=== PATIENT | male | born 1975 | race Caucasian/White ===

== ENCOUNTER → 2022-12-22 | Outpatient (CLI) | payer BC ==
[2022-12-22 23:29] LABS: Basophils # (A) 0.04 X 10*3/uL (0.00-0.10); Basophils % (A) 0.5 %; Eosinophils # (A) 0.18 X 10*3/uL (0.04-0.35); Eosinophils % (A) 2.3 %; HCT 46.3 % (39.6-50.0); Immature Grans, Automated 0.5 %; Lymphocytes # (A) 1.68 X 10*3/uL (0.90-5.00); Lymphocytes % (A) 21.9 %; MCH 30.4 pg (27.0-32.0); MCHC 32.4 g/dL (32.0-37.0); MCV 93.9 fL (80.0-97.0); Monocytes # (A) 0.63 X 10*3/uL (0.20-1.00); Monocytes % (A) 8.2 %; NRBC Per 100 WBC 0 /100 WBCS (0.0-0.0); Neutrophils % (A) 66.6 %; Platelet Count 330 X 10*3/uL (140-440); RBC 4.93 X 10*6/uL (4.40-5.60); RDW 12.8 % (11.5-14.5); WBC 7.67 X 10*3/uL (4.50-10.00)
[2022-12-22 23:53] LABS: African American GFR (CKD) 105.6 (60.0-200.0); Anion Gap 10.8 mmol/L (10.00-18.00); Calcium 10.3 mg/dL (8.7-10.3); Carbon Dioxide 27.2 mmol/L (20.0-27.5); Non-African American GFR(CKD) 91.1 (60.0-200.0); Potassium 4.6 mmol/L (3.5-5.5)
[2022-12-22 23:58] LABS: Appearance,Urine Clear (Clear); Bilirubin,Urine Negative (Negative); Blood,Urine Moderate (Negative); Color,Urine Yellow (Yellow); Ketones,Urine Negative (Negative); Nitrite,Urine Negative (Negative); Specific Gravity,Urine 1.025 (1.001-1.030); Urobilinogen,Urine 0.2 (0.2,1.0)
[2022-12-23 00:12] LABS: Bacteria,Urine None Seen /HPF (None Seen); Calcium Oxalate Crystals,Urine Present /LPF (None Seen)
== END | disposition home or self-care (01) ==
LOC: LABPAT 15:11
PROVIDERS: ATTEND Urology
DX: Z01.812 Encounter for preprocedural laboratory examination (principal); N20.1 Calculus of ureter; R31.29 Other microscopic hematuria
CPT/HCPCS: 80048; 81001; 85025; 87086

== ENCOUNTER 2022-12-27 05:46 | Day surgery (SDC) | payer BC ==
[2022-12-21 15:02] VITALS: BMI 29.4
--- NOTE | 2022-12-26 19:20 | P.GSHP ---
History of Present Illness H&P Date: 12/26/22 Chief Complaint: Left renal calculus The patient is a 46-year-old white male with a history of left-sided urolithiasis, for which he has undergone extracorporal shockwave lithotripsy (ESWL) twice in the past. He recently passed a 9 mm left distal ureteral calculus. Follow-up imaging reveals a [address] left [address]J calculus. Dr. Mills reviewed alternative treatment options with the patient, and he has elected to undergo ESWL. He comes for this reason. Past Medical History Past Medical History: Hypertension Additional Past Medical History / Comment(s): kidney stones History of Any Multi-Drug Resistant Organisms: None Reported Past Surgical History: No Surgical Hx Reported Additional Past Surgical History / Comment(s): Left ESWL x 2 Past Anesthesia/Blood Transfusion Reactions: No Reported Reaction Smoking Status: Current some day smoker - Past Family History Mother Family Medical History: No Reported History Medications and Allergies Allergies Allergy/AdvReac Type Severity Reaction Status Date / Time No Known Allergies Allergy Verified 12/21/22 14:52 Surgical - Exam - General well developed, well nourished, no distress - Neck no masses, trachea midline - Abdomen Abdomen: soft, non tender, no guarding, no rigid, no rebound - Psychiatric oriented to time, oriented to person, oriented to place, speech is normal, memory intact Results - Imaging Abdominal x-ray: report reviewed Assessment and Plan (1) Ureterolithiasis Status: Acute Priority: High Code(s): N20.1 - CALCULUS OF URETER SNOMED Code(s): 90326951 Plan: Left ESWL. The patient is aware of potential risks, which include anesthesia, renal contusion, perinephric hematoma, treatment failure, incomplete fragmentation, and Steinstrasse. He is also aware of the possible need for secondary treatment.
--- NOTE | 2022-12-27 06:17 | XR ---
EXAMINATION TYPE: XR KUB DATE OF EXAM: 12/27/2022 6:13 AM CLINICAL HISTORY: Kidney stone TECHNIQUE: Two supine KUB images of the abdomen are obtained. COMPARISON: Abdominal x-ray September 08, 2015 FINDINGS: There is stellate 1.6 cm calculus at L2 level left mid abdomen. Occasional Scattered tiny p elvic left-sided pelvic phleboliths. Overall nonobstructive bowel gas pattern. Visualized osseous structures are intact IMPRESSION: As above.
[2022-12-27] MEDS ORDERED: LIDOCAINE 1% (10MG/ML) FOR IV START INTRADERMA PRN (06:31)
[2022-12-27] MEDS: LACTATED RINGERS 1,000 ML IV SCH ×2 (06:35→07:37)
[2022-12-27 06:43] VITALS: RESP 16; TEMP 97.5
[2022-12-27] MEDS ORDERED: fentaNYL (PF) 50 MCG/ML 2 ML AMP IV PRN (07:00)
[2022-12-27] MEDS ORDERED: ONDANSETRON 4 MG/2 ML VIAL IVP PRN (07:00)
[2022-12-27] MEDS ORDERED: PROPOFOL 10 MG/ML 20 ML VIAL IV ONE (07:38)
[2022-12-27] MEDS ORDERED: KETAMINE 10 MG/ML 20 ML VIAL ONE (07:38)
[2022-12-27] MEDS ORDERED: fentaNYL (PF) 50 MCG/ML 2 ML AMP ONE (07:38)
[2022-12-27] MEDS ORDERED: MIDAZOLAM 2 MG/2 ML VIAL ONE (07:38)
[2022-12-27 08:40] VITALS: BP 135/75; PULSE 70
--- NOTE | 2022-12-27 08:54 | P.OP ---
Date of Procedure: 12/27/22 Preoperative Diagnosis: Left UPJ calculus Postoperative Diagnosis: Same Procedure(s) Performed: Left extracorporal shockwave lithotripsy (ESWL) Anesthesia: MAC Surgeon: Addison Estrada Estimated Blood Loss (ml): 0 IV fluids (ml): 400 Pathology: none sent Condition: stable Disposition: PACU Indications for Procedure: The patient is a 46-year-old white male with a history of left-sided urolithiasis, for which he has undergone extracorporal shockwave lithotripsy (ESWL) twice in the past. He recently passed a 9 mm left distal ureteral calculus. Follow-up imaging reveals a [address]J calculus. Dr[address] Mills reviewed alternative treatment options with the patient, and he has elected to undergo ESWL. He comes for this reason. Operative Findings: Fragmentation of the calculus occurs. Description of Procedure: The patient was taken to the operating room and placed on the Dornier Compact Delta II lithotripter in the supine position. The calculus was seen on biplanar fluoroscopy. Once the patient was properly positioned and sedated, lithotripsy was performed. The energy level was gradually increased per protocol, to an energy level of 5. After 200 shocks were administered, a 2 minute pause was instituted per protocol. A total of 2500 shocks were given at a rate of 80 shocks per minute. Fluoroscopy was utilized at a minimum to ensure proper positioning and determine the treatment status. The calculus changed in appearance, consistent with fragmentation. The patient tolerated the procedure well was taken to the recovery room in stable condition. Instructions were given to strain the urine, and the patient will follow-up within one week.
== END 2022-12-27 09:43 | disposition home or self-care (01) ==
LOC: ORWHC2ENDO 05:46
PROVIDERS: ATTEND Urology
DX: N20.1 Calculus of ureter (principal); Z87.442 Personal history of urinary calculi; I10 Essential (primary) hypertension; F17.200 Nicotine dependence, unspecified, uncomplicated; Z79.899 Other long term (current) drug therapy
CPT/HCPCS: 74018; 50590; J2250; J3010; J2704

== ENCOUNTER → 2023-01-04 | Outpatient (CLI) | payer BC ==
--- NOTE | 2023-01-04 10:00 | XR ---
EXAMINATION TYPE: XR KUB DATE OF EXAM: 01/04/2023 9:51 AM CLINICAL HISTORY: Left-sided kidney stones status post treatment. TECHNIQUE: Two supine KUB images of the abdomen are obtained. COMPARISON: Prior abdominal x-ray days ago.. FINDINGS: Interval passage of the 16 mm dominant left renal calculus to the left pelvic level with fe w small fragments likely within the distal left ureter. Largest distal fragment measures roughly 20 m m long axis. No right-sided nephrolithiasis. Overall nonobstructive bowel gas pattern. Osseous structures are intact. Lung bases are clear. IMPRESSION: As above.
== END | disposition home or self-care (01) ==
LOC: RADXRMAIN 09:33
PROVIDERS: ATTEND Urology
DX: N20.1 Calculus of ureter (principal)
CPT/HCPCS: 74018